=== PATIENT | female | born 1970 | race Caucasian/White ===

== ENCOUNTER 2018-05-27 09:02 | Emergency (ER) | payer SELFPAY ==
--- NOTE | 2018-05-27 09:34 | EDPHY ---
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 Moderate bleeding. No numbness, tingling or difficulty moving the finger. She applied a bandage in thought it would be fine. She woke this morning it was still bleeding, thus she presents. No difficulty using the hand. No significant pain at rest or with movement. Tetanus is up-to-date. She has not take any anticoagulants. She is right-hand dominant. 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 No other associated complaints or modifying factors. REVIEW OF SYSTEMS: 10 systems were reviewed and negative with the exception of the elements mentioned in the history of present illness. PCP: None SPECIALISTS: None PAST MEDICAL HISTORY: No ongoing medical diagnoses. Left pneumothorax remotely. PAST SURGICAL HISTORY: No recent surgical history. SOCIAL HISTORY: Occasional tobacco use. No drug use. 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 Lives independently. FAMILY HISTORY: Noncontributory EXAMINATION: General Appearance: Alert, no distress Head: normocephalic, atraumatic Cardiovascular: Regular rate. Symmetric radial pulses with brisk cap refill the fingers right hand Neurological: A&O, nonfocal. Two point sensation is symmetric in the fingers of the right hand. Excellent strength of the interossei symmetrically. Skin: Warm and dry, no rash. 2 cm laceration of the right index finger on the radial side. No involvement of the underlying vasculature or tendon. Neuro intact distally. Extremities: Tenderness in the area of the right finger laceration. Full range of motion of the right hand is intact including superficialis and profundus flexors. Psychiatric: Mood and affect normal DIFFERENTIAL DIAGNOSES: Including but not limited to laceration, laceration with tendon injury, laceration complication, laceration with delayed presentation MDM: 9:30 a.m. Laceration to right index finger, radial side with no injury to the tendons or vasculature obvious. This is a delayed presentation at approximately 1:00 p.m. From injury. We discussed risks, benefits alternatives and she would like me to close this wound. We will vigorously and copiously irrigate the wound with Betadine and saline. She has been anesthetize at this time. 10:13 a.m. After lengthy discussion patient prefers at I do close the wound. We discussed risks, benefits alternatives and she would like to assume the risk of closure at 13 hr after injury. This is a superficial wound that I think will do well, but she is still at risk for infection and then potentially surgery should this develop. We will minimize this by vigorous irrigation, prophylaxis with Keflex. We discussed strict ED precautions for any signs of infection. I close the wound loosely to allow for drainage. I would like her to return here in 48 hr for wound check given the delayed presentation. She has agreed to proceed with these in to assume the risk and she is discharged home stable condition. PROCEDURE: Digital Block Indication: Finger laceration Consent: Verbal Location: Right index finger Anesthesia: Lidocaine 1% plain, 0.25% Marcaine plain, 5mL Description: Base of the finger was prepped. The above was infused without difficulty. Tolerated well. Good anesthesia. Complications: None PROCEDURE: Laceration repair Consent: Verbal Location: Right index finger Length of repair: 2 cm Complexity: Simple Layer involvement: Single Anesthesia: Digital block Irrigation: Extensive Debridement: None Procedure description: Following good anesthesia, the wound was copiously irrigated. Wound bed was explored with a sterile glove, and there is no foreign body noted. No injury to the underlying tendon or vasculature. Wound borders were approximated well with good hemostasis. Tolerated well without complication. Suture/Staple material: 4-0 Prolene, 2 simple sutures Wound care: Routine as discussed. Return here in 48-72 hours for wound check Suture/Staple removal: 8-10 Days SUPERVISION: This patient was independently evaluated without direct involvement of or examination by the attending physician. CONSULTATION: None (Avinash Reyes) The patient was evaluated and managed by the physician assistant administrator. I have reviewed this chart and I agree with the findings and plan of care as documented , as indicated by my signature. I am the secondary supervising physician. ( Kelley Ratliff) - Objective Vital Signs: Initial Vital Signs Temperature (C) 36.7 C 05/27/18 09:05 Heart Rate 82 05/27/18 09:05 Respiratory Rate 16 05/27/18 09:05 Blood Pressure 117/76 05/27/18 09:05 O2 Sat (%) 96 05/27/18 09:05 O2 Delivery Mode Room Air Allergies/Adverse Reactions: Penicillins Allergy (Verified 05/27/18 09:04) Home Medications: Medication Instructions Recorded Cephalexin [Keflex (*)] 500 mg PO QID #28 cap 05/27/18 Departure - Departure Disposition: Home, Routine, Self-Care Clinical Impression: Laceration of right index finger Condition: Good Instructions: Care For Your Stitches (ED), Finger Laceration (ED) Additional Instructions: 1. Daily wound care as discussed 2. Follow up here in 48 hr for wound check 3. Return here in 7-10 days for suture removal 4 Keflex antibiotics as discussed for 7 days Referrals: Anthony Laguerre MD [Medical Doctor] - As per Instructions Prescriptions: Cephalexin [Keflex (*)] 500 mg PO QID #28 cap
[2018-05-27 10:39] VITALS: BP 115/82
== END 2018-05-27 10:39 | disposition home or self-care (01) ==
PROC: 0HQGXZZ Repair Left Hand Skin, External Approach (ICD-10-PCS; principal; 2018-05-27)
DX: S61.210A Laceration without foreign body of right index finger without damage to nail, initial encounter (principal); W29.0XXA Contact with powered kitchen appliance, initial encounter; Y93.G1 Activity, food preparation and clean up; Y92.000 Kitchen of unspecified non-institutional (private) residence as the place of occurrence of the external cause

== ENCOUNTER 2018-06-03 20:08 | Emergency (ER) | payer SELFPAY ==
[2018-06-03 20:15] VITALS: BP 118/99
--- NOTE | 2018-06-03 20:37 | EDPHY ---
H & P Time Seen by Provider: 06/03/18 20:16 HPI/ROS: CHIEF COMPLAINT: "I need help from alcohol" HISTORY OF PRESENT ILLNESS: 48-year-old female self-described alcoholic had a friend drive her to the ER this evening to request detoxification from alcohol. She denies suicidal or homicidal ideation. Denies hallucination. Denies seizure. PHYSICAL EXAM (Prior to examination, patient consented to physical exam, hands were washed and my usual and customary physical exam procedures followed) 1) GENERAL: Well-developed, well-nourished, alert and oriented to person place time and events. Clear speech pattern. Agitated. 2) HEAD: Normocephalic 3) HEENT: sclera anicteric 4) LUNGS: Breathing comfortably. 5) musculoskeletal: Stable steady gait without assistance. Smoking Status: Current every day smoker Constitutional: Initial Vital Signs Temperature (C) 36.9 C 06/03/18 20:11 Heart Rate 143 H 06/03/18 20:11 Respiratory Rate 20 06/03/18 20:11 Blood Pressure 118/99 H 06/03/18 20:11 O2 Sat (%) 92 06/03/18 20:11 Allergies/Adverse Reactions: Penicillins Allergy (Verified 06/03/18 20:11) MDM/Departure - MDM ED Course/Re-evaluation: 8:30 p.m.: Patient states that she was under the understanding that she would be admitted the hospital for medical detoxification from alcohol. When I informed the patient that we do we do not have a dedicated detoxification unit she became visibly upset. At this point the nurse Katia and I had a lengthy discussion with the patient and offered to [facility] the [facility] as well as provide Librium now. I recommended this option verses attempting detoxification on her own. Patient became progressively more upset and walked out of the emergency department. She did not receive aftercare instructions or medications. I saw this patient independently based on established practice protocols. Care of patient under supervision of secondary supervising physician Dr joshi . - Depart Disposition: Against Medical Advice Clinical Impression: Alcohol withdrawal Qualifiers: Complication of substance-induced condition: uncomplicated Qualified Code(s): F10.230 - Alcohol dependence with withdrawal, uncomplicated Condition: Fair Referrals: NONE *PRIMARY CARE P,. [Primary Care Provider] - As per Instructions
== END 2018-06-03 20:36 | disposition left against medical advice (07) ==
DX: F10.230 Alcohol dependence with withdrawal, uncomplicated (principal)

== ENCOUNTER 2019-02-14 13:59 | Emergency (ER) | payer OTHER ==
--- NOTE | 2019-02-14 14:31 | EDPHY ---
H & P Stated Complaint: painful hemhorroids, cream from UC is not helping Source: Patient Exam Limitations: No limitations - Personal History LMP (Females 10-55): Post Menopausal Current Tetanus/Diphtheria Vaccine: Unsure Current Tetanus Diphtheria and Acellular Pertussis (TDAP): Unsure - Medical/Surgical History Hx Asthma: No Hx Chronic Respiratory Disease: No Hx Diabetes: No Hx Cardiac Disease: No Hx Renal Disease: No Hx Cirrhosis: No Hx Alcoholism: Yes Hx HIV/AIDS: No Hx Splenectomy or Spleen Trauma: No Other PMH: l pneumo - Social History Smoking Status: Current every day smoker Time Seen by Provider: 02/14/19 14:23 HPI/ROS: HPI: This is a 48-year-old female who presents with Chief Complaint: painful hemorrhoids, cream from UC is not helping Location: Rectum Quality: Hemorrhoids, pain Duration: 1 month Signs and Symptoms: no fever, no nausea, no vomiting, no hematemesis, no blood in stool, no abdominal bloating, no diarrhea, no back pain, no urinary symptoms , no vaginal bleeding/discharge, no indigestion, no chest pain, no shortness of breath Timing: Constant Severity: 07/02 Context: Patient presents with complaints of painful external hemorrhoids for the last 1 month. She had a bowel movement this morning. She has a history of constipation. Denies any actual abdominal pain, fever, nausea, vomiting, urinary symptoms, vaginal discharge, vaginal bleeding. Patient went to urgent care 2 days ago and received hydrocortisone 2% cream without any pain relief. Patient reports that the pain was so intense today that she was unable to go to work. Modifying Factors: HydroCortisone 2% cream without relief Comment: ROS: A comprehensive 10 system review of systems is otherwise negative aside from elements mentioned in the history of present illness. MEDICAL/SURGICAL/SOCIAL HISTORY: Medical history: Left pneumothorax, postmenopausal Surgical history: Denies Social history: Current every day smoker. Drinks alcohol socially. Family history noncontributory. CONSTITUTIONAL: Crying middle-aged white female, awake and alert, no obvious distress HEENT: Atraumatic and normocephalic, PERRL, EOMI. Nares patent; no rhinorrhea; no nasal mucosal edema. Tympanic membranes clear. Oropharynx clear, no exudate and moist pink mucosa. Airway patent. No lymphadenopathy. No meningismus. Cardiovascular: Normal S1/S2, regular rate, regular rhythm, without murmur rub or gallop. PULMONARY/CHEST: Symmetrical and nontender. Clear to auscultation bilaterally. Good air movement. No accessory muscle usage. ABDOMEN: Soft, nondistended, nontender, no rebound, no guarding, no peritoneal signs, no masses or organomegaly. No CVAT. RECTAL: Good sphincter tone, light brown stool in vault, mild external hemorrhoids-no active bleeding or thrombosis, no fissures, no palpable masses EXTREMITIES: 2/2 pulses, strength 5/5, no deformities, no clubbing, no cyanosis or edema. NEUROLOGICAL: no focal neuro deficits. GCS 15. SKIN: Warm and dry, no erythema. no rash. Good capillary refill. (Richelle Mariee) Constitutional: Initial Vital Signs Temperature (C) 37 C 02/14/19 14:12 Heart Rate 84 02/14/19 14:12 Respiratory Rate 14 02/14/19 14:12 Blood Pressure 93/66 L 02/14/19 14:12 O2 Sat (%) 97 02/14/19 14:12 O2 Delivery Mode Room Air Allergies/Adverse Reactions: Penicillins Allergy (Verified 06/03/18 20:11) Home Medications: Medication Instructions Recorded Hydrocortisone Acetate 25 mg MS Q6 #10 supp 02/14/19 [Hemorrhoidal Hc 25 mg supp (*)] Lidocaine 4% [Anecream 4% Cream 1 dilan TD QID #1 tube 02/14/19 (*)] Medical Decision Making ED Course/Re-evaluation: Vital signs reviewed and stable upon arrival. Uro jet topical applied with adequate pain relief No signs of thrombosed hemorrhoids or GI bleeding. Abdomen is soft and nontender and doubt surgical process or need for imaging Given prescription for hydrocortisone suppositories and lidocaine 4% cream with General surgery referral Work excuse provided. This patient was seen under the supervision of my secondary supervising physician. I evaluated and cared for this patient independently. (Richelle Mariee) The patient was evaluated and managed by the physician diver assistant. I have reviewed this chart and I agree with the findings and plan of care as documented , as indicated by my signature. I am the secondary supervising physician. ( Kelley Ratliff) Differential Diagnosis: Differential diagnosis includes but is not limited to external hemorrhoids, thrombosed hemorrhoids, anal fissure, rectal impaction, constipation. (Richelle Mariee) - Data Points Medications Given: Discontinued Medications Lidocaine (Uroject Lidocaine 2% Jelly) 20 ml UR EDNOW ONE Stop: 02/14/19 16:02 Last Admin: 02/14/19 16:05 Dose: 20 ml Departure - Departure Disposition: Home, Routine, Self-Care Clinical Impression: External hemorrhoids without complication Condition: Good Instructions: Hemorrhoids (ED), Rubber Band Ligation (DC), Hemorrhoidectomy (DC ) Additional Instructions: Perform Sitz baths 2-3 times per day. Take MiraLax daily to prevent constipation. Consume a minimum of 8-10 glasses of water or electrolyte fluid replacement drinks that include Gatorade, Powerade, Pedialyte. Eat a bland diet for the next 48 hours and then slowly advance as tolerated. Place hemorrhoid suppositories every 6 hr for the next few days. Apply lidocaine topical cream every 6 hr as needed for rectal pain. Establish care with General surgery to evaluate hemorrhoids and determine if candidate for hemorrhoid removal. Referrals: Sita Winkler MD [Medical Doctor] - As per Instructions Stand Alone Forms: Work Excuse Prescriptions: Hydrocortisone Acetate [Hemorrhoidal Hc 25 mg supp (*)] 25 mg MS Q6 #10 supp Lidocaine 4% [Anecream 4% Cream (*)] 1 dilan TD QID #1 tube
[2019-02-14] MEDS ORDERED: LIDOCAINE 2% JELLY 20 ML (UROJECT) ONE (16:00)
[2019-02-14] MEDS ORDERED: LIDOCAINE 2% JELLY 20 ML (UROJECT) UR ONE (16:01)
[2019-02-14 16:21] VITALS: BP 105/58
== END 2019-02-14 16:20 | disposition home or self-care (01) ==
DX: R58 Hemorrhage, not elsewhere classified (principal)